=== PATIENT | female | born 1930 | race Caucasian/White ===

== ENCOUNTER 2018-12-09 18:12 | Inpatient (IN) ==
[2018-12-09 18:32] LABS: Basophils # 0.1 K/mm3 (0-0.2); Basophils % 0.4 % (0.1-2.0); Eosinophils # 0.4 K/mm3 (0.0-0.4); Hematocrit 40.9 % (37.0-47.0); Hemoglobin 13.5 g/dL (12.2-16.2); Lymphocytes # 2.3 K/mm3 (0.7-4.5); Lymphocytes % 17.8 % (10-50); Mean Platelet Volume 8.1 fl (7.4-10.4); Monocytes # 0.6 K/mm3 (0.1-1.0); Monocytes % 4.3 % (1.7-9.3); Neutrophils # 9.7 K/mm3 (1.8-7.8); Neutrophils % 74.6 % (37.0-80.0); Platelet Count 264 K/mm3 (142-424); Red Blood Count 4.45 M/mm3 (4.20-5.40); White Blood Count 13.1 K/mm3 (4.8-10.8)
[2018-12-09 18:39] LABS: Albumin Level 3.5 gm/dL (3.4-5.0); Albumin/Globulin Ratio 0.9 (1.1-1.8); Anion Gap 13.9 mEq/L (5-15); Bilirubin,Total 0.5 mg/dL (0.2-1.0); Calcium 8.9 mg/dL (8.5-10.1); Globulin 4.1 gm/dl (1.3-3.2); Total Protein,Serum 7.6 gm/dL (6.4-8.2)
--- NOTE | 2018-12-09 18:42 | Emergency Department Note ---
ED Disposition Condition on Discharge: Good - Critical Care Critical Care Time: No <Ankur Caceres - Last Filed: 12/09/18 20:19> <Ankur Cabral - Last Filed: 12/09/18 21:22> Clinical Impression: Fall Qualifiers: Encounter type: initial encounter Qualified Code(s): W19.XXXA - Unspecified fall, initial encounter Hip fracture Qualifiers: Encounter type: initial encounter Fracture type: closed Laterality: right Qualified Code(s): S72.001A - Fracture of unspecified part of neck of right femur, initial encounter for closed fracture Disposition: Admitted As Inpatient Referrals: Jf Gerard [Primary Care Provider] - Attestation: On 12/09/18, the high probability of a clinically significant, sudden or life threatening deterioration of the following system(s) required my full and direct attention, intervention and personal management. The time I documented below is in addition to time spent performing reported procedures but includes the following listed in this critical care notation. Medical Decision Making - Medical Records Medical records reviewed: Yes: I reviewed the patient's medical records. - Eduardo Inquiry Pt receiving controlled substance: No Eduardo was queried for this patient: No - Lab Data Lab results reviewed: Yes: I reviewed the patient's lab results. Result diagrams: 12/09/18 18:15 12/09/18 18:15 <Ankur Caceres - Last Filed: 12/09/18 20:19> - Lab Data Result diagrams: 12/09/18 18:15 12/09/18 18:15 - Radiology Data #1 Image(s): Femur Image Reviewed: Yes I reviewed the patient's radiology image Preliminary Findings: Abnormal (hip fx ) - CT Data CT Scan: Pelvis Time Received: 21:[address] Reviewed: Yes: I have viewed the radiologist's interpretation Preliminary Findings: Abnormal (hip fx ) - Physician Consults Physician Consulted: tyrel Reason -: Admission Additional Consult: [email or web address] Reason -: Pt condition <Ankur Cabral - Last Filed: 12/09/18 21:22> Vital Signs: 12/09/18 18:13 12/09/18 20:09 Temperature 98.1 F Temperature Source Oral Pulse Rate [Left Radial] 75 84 Respiratory Rate 16 Blood Pressure [Right Arm] 134/93 H 139/77 Blood Pressure Mean [Right Arm] 106 97 Blood Pressure Position [Right Arm] Sitting 02 Sat by Pulse Oximetry 91 L 91 L Oxygen Delivery Method Room Air - Lab Data Lab Results 12/09/18 18:15: WBC 13.1 H, RBC 4.45, Hgb 13.5, Hct 40.9, MCV 92.0, MCH 30.4, MCHC 33.0, RDW 13.0, Plt Count 264, MPV 8.1, Neut % (Auto) 74.6, Lymph % (Auto) 17.8, [place] % (Auto) 4.3, Eos % (Auto) 3.0, Baso % (Auto) 0.4, Neut # (Auto) 9.7 H, Lymph # (Auto) 2.3, [place] # (Auto) 0.6, Eos # (Auto) 0.4, Baso # (Auto) 0.1 12/09/18 18:15: Sodium 134 L, Potassium 3.9, Chloride 98, Carbon Dioxide 26, Anion Gap 13.9, BUN 15, Creatinine 1.12 H, Estimated Creat Clear 46, Estimated GFR 46 L, Est GFR ( Amer) 56 L, Glucose 133 H, Calcium 8.9, Total Bilirubin 0.5, AST 18, ALT 21, Alkaline Phosphatase 109, Total Protein 7.6, Albumin 3.5, Globulin 4.1 H, Albumin/Globulin Ratio 0.9 L 12/09/18 18:15: PT 10.1, INR 0.97, APTT 31.0 Orders (Tests/Meds): ED MEDICATIONS Discontinued Medications Generic Name Dose Route Start Last Admin Trade Name Freq PRN Reason Stop Dose Admin Ketorolac Tromethamine 30 mg 12/09/18 19:33 12/09/18 20:02 Toradol 30mg/Ml Vial IV 12/09/18 19:34 30 mg ONCE ONE Administration ORDERS Category Date Time Status CT pelvis wo con Stat Cat Scan 12/09/18 18:34 Taken Femur XR right 2 views [XR femur RT 2V] Stat Exams 12/09/18 18:35 Taken Fall HPI - General Mode of Arrival: EMS Source of Information: Patient Limitations: No Limitations Description of Symptoms (Recalled from ER Triage Doc. by RN): to ed per squad pt states fell down on step landing on sidewalk c/o rt hip pain. rt leg shortened pedal pulse strong. pt denies any other injury <Ankur Caceres - Last Filed: 12/09/18 20:19> <Ankur Cabral - Last Filed: 12/09/18 21:22> - General Chief Complaint: Fall Stated Complaint: fall Time Seen by Provider: 12/09/18 18:40 - Related Data Home Medications Medication Instructions Recorded Confirmed amlodipine 5 mg tablet 5 mg PO DAILY 90 Days 06/10/17 12/09/18 levothyroxine 125 mcg tablet 125 mcg PO DAILY 90 Days 06/10/17 12/09/18 metoprolol tartrate 50 mg tablet 50 mg PO DAILY 90 Days 06/10/17 12/09/18 pravastatin 80 mg tablet 1 tab PO DAILY 90 Days 06/10/17 12/09/18 triamterene 37.5 1 tab PO DAILY 90 Days 06/10/17 12/09/18 mg-hydrochlorothiazide 25 mg tablet aspirin 81 mg tablet,delayed 81 mg PO DAILY 10/08/18 12/09/18 release multivit with min-folic 1 tab PO DAILY 10/08/18 12/09/18 acid-lutein 400 mcg-250 mcg chewable tablet Allergies Allergy/AdvReac Type Severity Reaction Status Date / Time EGGS Allergy Unknown Uncoded 10/08/18 09:27 INFLUENZA VIRUS VACCINE Allergy Unknown Uncoded 10/08/18 09:27 PENICILLIN Allergy Unknown Uncoded 10/08/18 09:27 [facility] [place] History - Hepatitis A Screen Drug use history?: No High risk sexual behaviors?: No History of sexually transmitted infection?: No Currently employed?: No Childcare worker?: No Do you have indoor plumbing?: Yes Do you have electricity?: Yes I have reviewed the patient's past medical history: Yes Medical History: Reports:: Cancer, Hyperlipidemia, Hypertension Other Medical History: Reports: Cataracts, Thyroid Disease Other Surgeries: Yes: Appendectomy, Cancer Surgery, Colonoscopy, Colon Resection, Thyroidectomy Comment: TINA - Social History Smoking Status: Never smoker Alcohol Intake: never Alcohol Intake Frequency:: other Substance Use Type: denies use Occupational Status: retired Family Hx:: Coronary Artery Disease <Ankur Caceres - Last Filed: 12/09/18 20:19> - Hepatitis A Screen Attestation statement:: This patient has been screened for Hepatitis A risk factors. ROS Obtained: Yes All systems reviewed & no additional complaints - Constitutional Constitutional: Denies fever(s) - Eyes Eyes: Denies change in vision - Cardiovascular Cardiovascular: Denies chest pain, Denies diaphoresis, Denies dyspnea - Respiratory Respiratory: No chest congestion, No dyspnea - Gastrointestinal Gastrointestingal: Denies: abdominal pain - Musculoskeletal Musculoskeletal: Reports joint pain, Reports joint stiffness, Reports limited range of motion, Reports muscle cramps, Reports muscle aches - Integumentary/Breasts Skin/Breast: Denies rash, Denies skin pain - Neurologic Neurologic: Denies seizure-like activity, Denies sensory deficit, Denies syncope, Denies tingling, Denies weakness - Hematologic/Lymphatic Henatologic/Lymphatic: Denies easy bleeding <Ankur Caceres - Last Filed: 12/09/18 20:19> Physical Exam - General General appearance: alert, in no apparent distress - Head Head exam: atraumatic, normocephalic, normal inspection - Eye Eye exam: Present: normal appearance, PERRL, EOMI - ENT ENT exam: Present: normal exam, normal oropharynx, mucous membranes moist, TM's normal bilaterally, normal external ear exam - Neck Neck exam: Present: normal inspection, full ROM, trachea midline. Absent: meningismus, lymphadenopathy - Respiratory Respiratory exam: Present: normal lung sounds bilaterally. Absent: respiratory distress - Cardiovascular Cardiovascular exam: Present: regular rate, normal rhythm. Absent: JVD - Abdominal Exam Abdominal exam: Present: soft, normal bowel sounds. Absent: distention, tenderness, guarding - Extremities Exam Extremities exam: Present: tenderness, normal capillary refill, joint swelling. Absent: full ROM - Expanded Lower Extremity Exam Left Knee exam: Present: tenderness, swelling, other (large hemarthrosis). Absent: normal inspection, full ROM, laceration - Neurological Exam Neurological exam: Present: alert, oriented X3 - Psychiatric Psychiatric exam: Present: normal affect, normal mood - Skin Skin exam: Present: warm, dry, intact, normal color <Ankur Caceres - Last Filed: 12/09/18 20:19>
[2018-12-09 20:33] LABS: INR 0.97 (0.9-1.1); Prothrombin Time 10.1 seconds (9.4-11.8)
--- NOTE | 2018-12-10 07:16 | Pharmacy Consult Notes ---
[facility] Pharmacy VTE Monitoring - Patient Demographics Admission date: 12/10/18 Report Date: 12/10/18 Time: 07:16 Allergies/Adverse Reactions: Patient Allergies EGGS Allergy (Unknown, Uncoded 10/08/18 09:27) INFLUENZA VIRUS VACCINE Allergy (Unknown, Uncoded 10/08/18 09:27) PENICILLIN Allergy (Unknown, Uncoded 10/08/18 09:27) Height: 1.63 m Weight: 85.389 kg Patient Problems: Current Active Problems Fall (Acute) Hip fracture (Acute) - VTE Risk Labs: VTE Related Lab Results Hgb 13.5 g/dL (12.2-16.2) 12/09/18 18:15 Hct 40.9 % (37.0-47.0) 12/09/18 18:15 Plt Count 264 K/mm3 (142-424) 12/09/18 18:15 PT 10.1 seconds (9.4-11.8) 12/09/18 18:15 INR 0.97 (0.9-1.1) 12/09/18 18:15 APTT 31.0 seconds (23.6-34.0) 12/09/18 18:15 BUN 15 mg/dL (7-18) 12/09/18 18:15 Creatinine 1.12 mg/dL (0.55-1.02) H 12/09/18 18:15 Estimated Creat Clear 46 mL/min (50-200) 12/09/18 18:15 Was VTE Risk Assessment Performed: Yes VTE Score: 6 VTE Risk Level: Moderate Risk Clinical Trial Participant: No - Prophylaxis VTE Prophylaxis Ordered?: Yes Types of VTE Prophylaxis: TEDS Knee High Location of Applied Device: Refused
[2018-12-10 07:28] LABS: INR 1.01 (0.9-1.1); Prothrombin Time 10.5 seconds (9.4-11.8)
[2018-12-10 07:34] LABS: Albumin/Globulin Ratio 0.8 (1.1-1.8); Anion Gap 12.9 mEq/L (5-15); Bilirubin,Total 0.8 mg/dL (0.2-1.0); Calcium 8.5 mg/dL (8.5-10.1); Globulin 3.8 gm/dl (1.3-3.2); Total Protein,Serum 6.8 gm/dL (6.4-8.2)
--- NOTE | 2018-12-10 08:38 | History & Physical Report ---
*Admission Date: 12/10/18 *Chief complaint: Fall, right hip pain *History of present illness: 88-year-old female with history of hypertension and dyspnea with exertion who fell at home last night while outside. She states she was trying to go up some stairs and lost her balance. She fell on her right hip and felt immediate pain. Brought to the ER due to inability to bear weight. Found to have Mildly impacted right femoral neck fracture subcapital versus transcervical. Orthopedics was consulted, Dr. Aguirre excepted to do surgical fixation in the morning. Otherwise the patient complains only of shortness of breath which has been present for decades. She does wear a CPAP at night. Denies head trauma or loss of consciousness. No other pain elsewhere. This morning on interview she has a slight fever but no focal complaints. Denies history of chest pain, neuropathy, confusion, bleeding disorders. Admitted to medicine for further management [facility] History I have reviewed the patient's past medical history: Yes Medical History: Reports:: Cancer, Hyperlipidemia, Hypertension *Have you ever received a pneumonia vaccine?: Yes *Have you received a flu vaccine this season?: No (REPORTS BEING ALLERGIC TO EGGS) Other Medical History: Reports: Cataracts, Thyroid Disease Other Surgeries: Yes: Appendectomy, Cancer Surgery, Colonoscopy, Colon Resection, Thyroidectomy - *Social History Educational Level: Attended High School Smoking Status: Never smoker Alcohol Intake: never Alcohol Intake Frequency:: other Substance Use Type: denies use *Occupational Status:: retired *Travel in the last 8 weeks: None Family Hx:: Coronary Artery Disease Review of Systems - Review of Systems Review of systems:: pertinent systems reviewed and negative unless documented below - *Neurologic Denies seizure-like activity, Denies sensory deficit, Denies fainting, Denies tingling, Denies weakness Meds Home Medications Medication Instructions Recorded Confirmed Type amlodipine 5 mg tablet 5 mg PO DAILY 90 Days 06/10/17 12/09/18 History metoprolol tartrate 50 mg tablet 50 mg PO BID 90 Days 06/10/17 12/09/18 History pravastatin 80 mg tablet 80 mg PO HS 90 Days 06/10/17 12/10/18 History triamterene 37.5 1 tab PO DAILY 90 Days 06/10/17 12/09/18 History mg-hydrochlorothiazide 25 mg tablet aspirin 81 mg tablet,delayed 81 mg PO DAILY 10/08/18 12/09/18 History release multivit with min-folic 1 tab PO DAILY 10/08/18 12/09/18 History acid-lutein 400 mcg-250 mcg chewable tablet Hydrocod/Acet 5/325 mg [[place] 5 mg PO Q6 PRN 12/10/18 12/10/18 History 5/325mg tablet] Levothyroxine Sodium [Synthroid 150 mcg PO DAILY 12/10/18 12/10/18 History 150mcg (0.15mg) tablet] Allergies Allergy/AdvReac Type Severity Reaction Status Date / Time EGGS Allergy Unknown Unknown Uncoded 12/10/18 07:45 allergy reaction INFLUENZA VIRUS VACCINE Allergy Unknown Unknown Uncoded 12/10/18 07:45 allergy reaction PENICILLIN Allergy Unknown Unknown Uncoded 12/10/18 07:45 allergy reaction Exam Vital signs and Labs for Last 24 Hours: Temp Pulse Resp BP Pulse Ox 97.9 F 93 H 17 149/84 H 94 L 12/10/18 04:00 12/10/18 04:00 12/10/18 04:00 12/10/18 04:00 12/10/18 07:39 Laboratory Results - last 24 hr 12/09/18 18:15: WBC 13.1 H, RBC 4.45, Hgb 13.5, Hct 40.9, MCV 92.0, MCH 30.4, MCHC 33.0, RDW 13.0, Plt Count 264, MPV 8.1, Neut % (Auto) 74.6, Lymph % (Auto) 17.8, [place] % (Auto) 4.3, Eos % (Auto) 3.0, Baso % (Auto) 0.4, Neut # (Auto) 9.7 H, Lymph # (Auto) 2.3, [place] # (Auto) 0.6, Eos # (Auto) 0.4, Baso # (Auto) 0.1 12/09/18 18:15: Sodium 134 L, Potassium 3.9, Chloride 98, Carbon Dioxide 26, Anion Gap 13.9, BUN 15, Creatinine 1.12 H, Estimated Creat Clear 46, Estimated GFR 46 L, Est GFR ( Amer) 56 L, Glucose 133 H, Calcium 8.9, Total Bilirubin 0.5, AST 18, ALT 21, Alkaline Phosphatase 109, Total Protein 7.6, Albumin 3.5, Globulin 4.1 H, Albumin/Globulin Ratio 0.9 L 12/09/18 18:15: PT 10.1, INR 0.97, APTT 31.0 12/10/18 06:45: PT 10.5, INR 1.01 12/10/18 06:45: Sodium 134 L, Potassium 3.9, Chloride 99, Carbon Dioxide 26, Anion Gap 12.9, BUN 14, Creatinine 1.00, Estimated Creat Clear 54, Estimated GFR 53 L, Est GFR ( Amer) 64, Glucose 118 H, Calcium 8.5, Magnesium 1.7, Total Bilirubin 0.8, AST 17, ALT 18, Alkaline Phosphatase 88, Total Protein 6.8, Albumin 3.0 L D, Globulin 3.8 H, Albumin/Globulin Ratio 0.8 L I & O for Last 24 hours: Intake & Output 12/07/18 12/08/18 12/09/18 12/10/18 23:59 23:59 23:59 23:59 Intake Total 498 / 498 Output Total 700 / 700 Balance -202 / -202 Weight 85.389 kg 85.389 kg - Constitutional no acute distress, obese - *Routine HEENT Exam Head: Present: normocephalic Eye: Present: EOMI, PERRL ENT: Present: mucous membranes moist - *Routine Neck Exam Present: supple. Absent: lymphadenopathy - *Routine Respiratory Exam Comments: Good air movement bilaterally, diminished in the bilateral bases with crackles posterior lung lung noel in the bases. Otherwise good air movement with no wheeze or rhonchi. - *Routine Cardiovascular Exam Present: RRR - *Routine Abdominal Exam Present: soft, normoactive bowel sounds. Absent: tenderness - *Routine Extremities Exam Absent: cyanosis, clubbing, edema Comments: Tender to palpation superficial her right hip. No leg length discrepancy or abnormal rotation - *Routine Skin Exam Present: warm. Absent: rash - *Routine Neurological Exam Present: alert, oriented X3 Assessment and Plan (1) HTN (hypertension) Current visit: Yes Status: Chronic Qualifiers: Hypertension type: essential hypertension Qualified Code(s): I10 - Essential (primary) hypertension Category: Medical Code(s): I10 - Essential (primary) hypertension Continue home medications. (2) DIAZ (dyspnea on exertion) Current visit: Yes Status: Chronic Category: Medical Code(s): R06.09 - Other forms of dyspnea Chest x-ray ordered, echo obtained with formal read pending. Has seen a order checker packer processer in the outpatient setting. No clear diagnosis at this time for her dyspnea. (3) Fall Current visit: Yes Status: Acute Qualifiers: Encounter type: initial encounter Qualified Code(s): W19.XXXA - Unspecified fall, initial encounter Category: Medical Code(s): W19.XXXA - Unspecified fall, initial encounter (4) Hip fracture Current visit: Yes Status: Acute Qualifiers: Encounter type: initial encounter Fracture type: closed Laterality: right Qualified Code(s): S72.001A - Fracture of unspecified part of neck of right femur, initial encounter for closed fracture Category: Medical Code(s): S72.009A - Fracture of unspecified part of neck of unspecified femur, initial encounter for closed fracture Patient is an 88-year-old female with history of hypertension, hypercholesterolemia. No known coronary artery disease. Normal kidney function. Nondiabetic with no use of insulin. Patient has an RCRI of 0. METS or not quantifiable due to her dyspnea with exertion and limited activity due to bilateral knee pain from arthritis. Have obtained EKG and echocardiogram. At this time patient is optimized for surgical fixation of her hip. May continue home medications in the perioperative setting. Would recommend postop Lovenox for DVT prophylaxis, 40 mg once daily. Will transition to either high-dose aspirin or a NOAC at time of discharge to complete 6 weeks of therapy. Physical therapy to be consulted after surgery for assessment and recommendations for placement versus outpatient PT. (5) TINA (obstructive sleep apnea) Current visit: Yes Status: Acute Category: Medical Code(s): G47.33 - Obstructive sleep apnea (adult) (pediatric) Patient brought her home CPAP. Continue while sleeping.
--- NOTE | 2018-12-10 14:49 | Progress Note ---
[facility] Anesthesia Checklist - Patient Identification Patient Identification: Arm Band, Verbal (Name & ) - Structural Data Admitted From: Inpatient Planned Operative Procedure/s: Right hip canulated screw Consent for Planned Operative Procedure(s) Verified: Yes Verified Documents: Surgical Consent, History and Physical - NPO Status Verified Time NPO: 00:00 - Chart Verification Results Verified: CBC, BMP - Additional verifications Patient : No Anesthesia Reactions: No - Airway Assessment C-Spine Mobility Assessed: Yes (limited neck ROM) TMJ Mobility Assessed: Yes Dentition: Poor Dentition - Neurological Assessment Level of Consciousness: Follows Commands, Drowsy Hx Seizures: No Numbness or tingling in extremities: No - Anesthesia Plan Anesthesia Risk discussed: Yes Anesthesia Plan: Verified ASA Class: III (Emergent) Anesthesia Type: Spinal [facility] History I have reviewed the patient's past medical history: Yes Medical History: Reports:: Asthma, Cancer, Hyperlipidemia, Hypertension *Have you ever received a pneumonia vaccine?: Yes *Have you received a flu vaccine this season?: No (REPORTS BEING ALLERGIC TO EGGS) Other Medical History: Reports: Cataracts, Hypothyroidism, Thyroid Disease Comment:: obesity Anesthesia experience/problems:: Hx of difficulty waking up, difficulty with keeping oxygen saturation levels increased to normal levels Other Surgeries: Yes: Appendectomy, Cancer Surgery, Colonoscopy, Colon Resection, Thyroidectomy Amputation: No Fractures: Yes - *Social History Educational Level: Attended High School Smoking Status: Never smoker Alcohol Intake: never Alcohol Intake Frequency:: other Substance Use Type: denies use *Occupational Status:: retired *Travel in the last 8 weeks: None Family Hx:: Coronary Artery Disease
--- NOTE | 2018-12-10 14:53 | Progress Note ---
[facility] Anesthesia Record Part I Intake, IV Amount: 1,200 Estimated blood loss (mL): 75 Urine output (mL): 450 Blood Products used (#): none Blood Pressure: 113/56 SaO2: 94 Pulse Rate: 112 Respiratory Rate: 16 Temperature: 100.2 F Patient is:: Drowsy, Nasal O2, Stable Stable to PACU at:: 14:40
--- NOTE | 2018-12-10 14:54 | Progress Note ---
[facility] Anesthesia Record Part II Discharge Time: 15:10 Destination: Medical Surgical Department ([place] bed) PACU nurse assessment reviewed?: Yes Patient Condition:: Good Anesthesia Complications:: None Swallowing reflex intact?: Yes Cyanosis?: No
--- NOTE | 2018-12-10 17:29 | Consult Report ---
*Admission Date: 12/10/18 *Reason for consult:: R hip fracture *History of present illness: 88-year-old female admitted through the ER last night with a chief complaint of right hip pain and inability to ambulate. She was coming into her home from outside and tripped, falling onto the right hip. She lives in a 1 level home with her and states there is one step needed to enter the house. She typically does not need assistive devices for ambulation and had no prior issues with his hip. No history of fracture, surgery or prior injury to the right hip. She denies any current back pain, numbness or tingling that radiates down the right lower extremity; no other injury sustained during the fall, denies LOC during the injury. Review of Systems - Review of Systems Review of systems:: pertinent systems reviewed and negative unless documented below - *Neurologic Denies seizure-like activity, Denies sensory deficit, Denies fainting, Denies tingling, Denies weakness [facility] History I have reviewed the patient's past medical history: Yes Medical History: Reports:: Asthma, Cancer, Hyperlipidemia, Hypertension Denies:: Seizures *Have you ever received a pneumonia vaccine?: Yes *Have you received a flu vaccine this season?: No (REPORTS BEING ALLERGIC TO EGGS) Other Medical History: Reports: Cataracts, Hypothyroidism, Thyroid Disease Anesthesia experience/problems:: Hx of difficulty waking up, difficulty with keeping oxygen saturation levels increased to normal levels Other Surgeries: Yes: Appendectomy, Cancer Surgery, Colonoscopy, Colon Resection, Thyroidectomy Amputation: No Fractures: Yes - *Social History Educational Level: Attended High School Smoking Status: Never smoker Alcohol Intake: never Alcohol Intake Frequency:: other Substance Use Type: denies use *Occupational Status:: retired *Travel in the last 8 weeks: None Family Hx:: Coronary Artery Disease Meds Home Medications Medication Instructions Recorded Confirmed Type amlodipine 5 mg tablet 5 mg PO DAILY 90 Days 06/10/17 12/09/18 History metoprolol tartrate 50 mg tablet 50 mg PO BID 90 Days 06/10/17 12/09/18 History pravastatin 80 mg tablet 80 mg PO HS 90 Days 06/10/17 12/10/18 History triamterene 37.5 1 tab PO DAILY 90 Days 06/10/17 12/09/18 History mg-hydrochlorothiazide 25 mg tablet aspirin 81 mg tablet,delayed 81 mg PO DAILY 10/08/18 12/09/18 History release multivit with min-folic 1 tab PO DAILY 10/08/18 12/09/18 History acid-lutein 400 mcg-250 mcg chewable tablet Hydrocod/Acet 5/325 mg [[place] 5 mg PO Q6 PRN 12/10/18 12/10/18 History 5/325mg tablet] Levothyroxine Sodium [Synthroid 150 mcg PO DAILY 12/10/18 12/10/18 History 150mcg (0.15mg) tablet] Allergies Allergy/AdvReac Type Severity Reaction Status Date / Time egg Allergy Unknown Unknown Verified 12/10/18 15:07 allergy reaction Egg Derived Allergy Unknown Unknown Verified 12/10/18 15:07 allergy reaction Influenza Virus Vaccines Allergy Unknown Unknown Verified 12/10/18 15:07 allergy reaction Penicillins Allergy Unknown Unknown Verified 12/10/18 15:07 allergy reaction Exam Vital signs and Labs for Last 24 Hours: Temp Pulse Resp BP Pulse Ox 100.2 F H 100 H 18 117/65 97 12/10/18 14:53 12/10/18 16:00 12/10/18 15:10 12/10/18 15:10 12/10/18 15:10 Laboratory Results - last 24 hr 12/09/18 18:15: WBC 13.1 H, RBC 4.45, Hgb 13.5, Hct 40.9, MCV 92.0, MCH 30.4, MCHC 33.0, RDW 13.0, Plt Count 264, MPV 8.1, Neut % (Auto) 74.6, Lymph % (Auto) 17.8, [place] % (Auto) 4.3, Eos % (Auto) 3.0, Baso % (Auto) 0.4, Neut # (Auto) 9.7 H, Lymph # (Auto) 2.3, [place] # (Auto) 0.6, Eos # (Auto) 0.4, Baso # (Auto) 0.1 12/09/18 18:15: Sodium 134 L, Potassium 3.9, Chloride 98, Carbon Dioxide 26, Anion Gap 13.9, BUN 15, Creatinine 1.12 H, Estimated Creat Clear 46, Estimated GFR 46 L, Est GFR ( Amer) 56 L, Glucose 133 H, Calcium 8.9, Total Bilirubin 0.5, AST 18, ALT 21, Alkaline Phosphatase 109, Total Protein 7.6, Albumin 3.5, Globulin 4.1 H, Albumin/Globulin Ratio 0.9 L 12/09/18 18:15: PT 10.1, INR 0.97, APTT 31.0 12/10/18 06:45: PT 10.5, INR 1.01 12/10/18 06:45: Sodium 134 L, Potassium 3.9, Chloride 99, Carbon Dioxide 26, Anion Gap 12.9, BUN 14, Creatinine 1.00, Estimated Creat Clear 54, Estimated GFR 53 L, Est GFR ( Amer) 64, Glucose 118 H, Calcium 8.5, Magnesium 1.7, Total Bilirubin 0.8, AST 17, ALT 18, Alkaline Phosphatase 88, Total Protein 6.8, Albumin 3.0 L D, Globulin 3.8 H, Albumin/Globulin Ratio 0.8 L I & O for Last 24 hours: Intake & Output 12/08/18 12/09/18 12/10/18 12/11/18 11:59 11:59 11:59 11:59 Intake Total 498 / 498 1200 / 1200 Output Total 700 / 700 480 / 480 Balance -202 / -202 720 / 720 Weight 183 lb 13.46 oz - Constitutional no acute distress - *Routine HEENT Exam Head: Present: normocephalic Eye: Present: EOMI ENT: Present: mucous membranes moist - *Routine Respiratory Exam Present: CTA bilaterally - *Routine Cardiovascular Exam Present: RRR - *Routine Abdominal Exam Present: soft. Absent: tenderness - *Routine Extremities Exam Comments: R hip no open wounds, ecchymosis or erythema moderately tender over R hip ROM R hip deferred, but log roll painful +DF/PF/EHL RLE SILT distally RLE in all distributions R calf soft, non-tender palpable pedal pulses RLE - *Routine Skin Exam Present: intact Results - Labs Result Diagrams: 12/09/18 18:15 12/10/18 06:45 Labs: Abnormal lab results 12/09/18 12/09/18 12/10/18 Range/Units 18:15 18:15 06:45 WBC 13.1 H (4.8-10.8) K/mm3 Neut # (Auto) 9.7 H (1.8-7.8) K/mm3 Sodium 134 L 134 L (136-145) mmol/L Creatinine 1.12 H (0.55-1.02) mg/dL Estimated GFR 46 L 53 L (>60) ml/min Est GFR ( Amer) 56 L (>60) ML/MIN Glucose 133 H 118 H (74-106) mg/dL Albumin 3.0 L D (3.4-5.0) gm/dL Globulin 4.1 H 3.8 H (1.3-3.2) gm/dl Albumin/Globulin Ratio 0.9 L 0.8 L (1.1-1.8) H & H 12/09/18 Range/Units 18:15 Hgb 13.5 (12.2-16.2) g/dL Hct 40.9 (37.0-47.0) % Coagulation 12/09/18 12/10/18 Range/Units 18:15 06:45 INR 0.97 1.01 (0.9-1.1) All other labs normal. - Diagnostic results Hip x-ray: image reviewed (non-displaced, impacted R femoral neck fracture ) Hip CT: image reviewed Assessment and Plan (1) HTN (hypertension) Current visit: Yes Status: Chronic Qualifiers: Hypertension type: essential hypertension Qualified Code(s): I10 - Essential (primary) hypertension Category: Medical Code(s): I10 - Essential (primary) hypertension (2) DIAZ (dyspnea on exertion) Current visit: Yes Status: Chronic Category: Medical Code(s): R06.09 - Other forms of dyspnea (3) Fall Current visit: Yes Status: Acute Qualifiers: Encounter type: initial encounter Qualified Code(s): W19.XXXA - Unspecified fall, initial encounter Category: Medical Code(s): W19.XXXA - Unspecified fall, initial encounter (4) Hip fracture Current visit: Yes Status: Acute Qualifiers: Encounter type: initial encounter Fracture type: closed Laterality: right Qualified Code(s): S72.001A - Fracture of unspecified part of neck of right femur, initial encounter for closed fracture Category: Medical Code(s): S72.009A - Fracture of unspecified part of neck of unspecified femur, initial encounter for closed fracture (5) TINA (obstructive sleep apnea) Current visit: Yes Status: Acute Category: Medical Code(s): G47.33 - Obstructive sleep apnea (adult) (pediatric) - Assessment and plan all Dx Assessment and Plan for all problems:: 88yo F with R femoral neck fracture, impacted & non-displaced -- I discussed treatment options with the patient and her family, and have decided to proceed with surgical fixation; I am recommending right hip pinning --I discussed the risks of surgery, including bleeding, infection, hardware failure/screw cut out, persistent pain/disability, and need for further surgery in the future. The patient and her family vocalized understanding and informed consent was obtained. --900 mg clindamycin on-call to the OR --Remain n.p.o. --Medically cleared by Dr. Ace --To the OR this afternoon for right hip pinning
--- NOTE | 2018-12-10 17:29 | Operative Note ---
Date of procedure: 12/10/18 Pre-op Diagnosis:: R femoral neck fracture Post-op Diagnosis:: R femoral neck fracture Procedure performed:: R hip pinning Surgeon:: Carolina Aguirre MD Returns Clerk(s):: María Shrestha BACK TENDER PULP DRIER:: Az Bañuelos Anesthesia: MAC, spinal Estimated blood loss (mL): 10 Clinical Note:: 88-year-old female with history of hypertension and dyspnea with exertion who fell at home last night while outside. She states she was trying to go up some stairs and lost her balance. She fell on her right hip and felt immediate pain. Brought to the ER due to inability to bear weight. Found to have non- displaced, impacted femoral neck fracture. I discussed treatment options with the patient and her family, and we decided to proceed with R hip pinning. Risks of surgery were discussed with the patient and her family, who vocalized understanding; informed consent was obtained. She was medically cleared for surgery by Dr. Ace. Operative findings:: implants: Rumsey 6.5mm cannulated screw placement, partially-threaded x3 (90, 90, 95mm) Operative note:: The patient was identified in preoperative holding and the right hip signed by myself. Informed consent was verified with the patient and all questions answered. She was evaluated by anesthesia and the decision was made to perform the procedure under a spinal anesthetic with sedation. The patient was then taken to the operating room, where spinal was administered on the cart; she was then transferred to the fracture table and sedation administered. 900mg clindamycin was infused intravenously, and the patient positioned on the fracture table with the right lower extremity secured in the appropriate leg lindo and the left hip abducted and externally rotated out of the way of the C arm. No traction was applied to the right leg but the fracture table used only to secure the leg so that the C arm could approach the hip. The right hip was then prepped and draped in the usual sterile fashion. Timeout was performed, identifying the correct patient, correct procedure, and correct site. The procedure was begun by bringing the C arm in and getting AP and lateral x- rays of the right hip. The fracture was nondisplaced and impacted, and no reduction maneuver was necessary. A guidepin was held over the exterior surface of the hip on both AP and lateral views and used to estimate my desired incision site. A small stab incision was made over the lateral aspect of the right thigh and through the underlying fascia. Hemostat was used to bluntly spread the underlying muscle down to the bone. Using AP and lateral C arm views, the guidepin was placed in the desired location, with starting point superior to the lesser trochanter and centered within the femoral neck and head on lateral view, hugging the inferior aspect of the femoral neck on the AP view. The pin was advanced until it was approximately 5 mm beneath the articular surface. A second guidepin was placed superior and anterior to this, centered within the femoral neck and head on AP view, on the anterior portion of the neck on the lateral view. The same technique was repeated with a third guidepin, paralleling the second pin so that it was centered on AP but posterior on the lateral view. This configuration formed an inverted triangle within the femoral neck. A cannulated drill bit was then used to perforate the lateral cortex of the femur and a 6.5 mm partially-threaded cannulated screw placed in each of these 3 holes. They measured 90 mm, 90 mm, and 95 mm long. Each screw had short threads, which were chosen so that they purchased the bone in the proximal fracture fragment only, creating compression at the fracture site. I was happy with the alignment of all screws on AP and lateral views and no screws were seen to perforate the joint surface. This concluded the procedure so the wound was closed in a layered fashion, using 0 Vicryl on the deep fascia, 2-0 Vicryl on the subcutaneous tissue and moreno on the skin. Sterile dressing was applied consisting of Xeroform, 4 x 4's and tegaderm. The patient was then removed from the fracture table and transferred to her cart, where she was transferred to PACU in good condition. There were no complications during this case. Tourniquet time (min): 0 Condition: stable Disposition: PACU Specimens:: none Complications:: none
--- NOTE | 2018-12-10 19:38 | Cardiology Report ---
APPROVED REPORT EXAM: Comprehensive 2D, Doppler, and color-flow Echocardiogram Physician/Allergy/Immunology: Lorna Monsalve RDCS Ht: 5 ft 4 in Wt: 180lbs BSA: 1.87 BP: 149/84 mmHg Indications: FX HIP,HTN,HLP 2D Dimensions LVOT 1.62 cm (M/F) 1.5-2.5 M-Mode Dimensions RVDd 2.26 cm (0.9-2.6)LVDd 5.27 cm (3.5-5.7) LVDs 0.00 cm (3.5-5.7)IVSd 1.26 cm (0.6-1.1) PWd 1.11 cm (0.6-1.1)EF (Teich) 99.60% FS 88.40% EDV (Teich) 133.60 mL ESV (Teich) 0.50 mL Left Ventricle Left atrium is mildly enlarged, left ventricle is normal size, mild concentric left ventricular hypertrophy, visually estimated ejection fraction 55% with no regional wall motion abnormality, diastolic parameters are inconclusive. Right Ventricle Right atrium and right ventricular mildly enlarged with normal contractility. Aortic Valve Aortic valve is thickened and calcified leaflet continue to display good mobility. There is no aortic stenosis aortic insufficiency. Mitral Valve Mitral valve leaflets are minimally thickened, there is no mitral stenosis, there is mild mitral regurgitation. Tricuspid Valve Tricuspid valve is grossly normal, there is mild tricuspid regurgitation, calculated right ventricular systolic pressure is 54 mmHg which is moderately elevated. Pulmonic Valve Pulmonic valve is poorly visualized. Great Vessels Aortic root is normal size. Pericardium There is anterior echo-free space seen. There is no significant pericardial effusion noted. Conclusion 1. Biatrial enlargement, normal left ventricular size, mild concentric left ventricular hypertrophy, visually estimated ejection fraction 55% with no regional wall motion abnormality, diastolic parameters are inconclusive. 2. Enlarged right ventricle with normal contractility. 3. Mild mitral and tricuspid regurgitation, calculated right ventricular systolic pressure is 54 mmHg consistent with moderately elevated right ventricular systolic pressure. 4. There is anterior echo-free space seen. Electronically signed by : Jaylon Azul, 12/10/2018 19:37:27
[2018-12-11 07:20] LABS: Basophils % 0.3 % (0.1-2.0); Eosinophils # 0.4 K/mm3 (0.0-0.4); Hematocrit 32.7 % (37.0-47.0); Hemoglobin 10.6 g/dL (12.2-16.2); Lymphocytes # 1.1 K/mm3 (0.7-4.5); Lymphocytes % 12.6 % (10-50); Mean Corpuscular HGB Conc 32.5 g/dL (31.8-35.4); Mean Corpuscular Volume 91.6 fl (81-99); Mean Platelet Volume 8.2 fl (7.4-10.4); Monocytes # 0.5 K/mm3 (0.1-1.0); Monocytes % 6.2 % (1.7-9.3); Neutrophils # 6.6 K/mm3 (1.8-7.8); Neutrophils % 75.9 % (37.0-80.0); Platelet Count 194 K/mm3 (142-424); Red Blood Count 3.57 M/mm3 (4.20-5.40); White Blood Count 8.7 K/mm3 (4.8-10.8)
[2018-12-11 07:32] LABS: Anion Gap 10.6 mEq/L (5-15); Bilirubin,Total 1.1 mg/dL (0.2-1.0); Calcium 7.8 mg/dL (8.5-10.1)
[2018-12-11 07:33] LABS: Albumin Level 2.4 gm/dL (3.4-5.0); Albumin/Globulin Ratio 0.7 (1.1-1.8); Globulin 3.3 gm/dl (1.3-3.2); Total Protein,Serum 5.7 gm/dL (6.4-8.2)
--- NOTE | 2018-12-11 12:57 | Progress Note ---
Internal Medicine - PN: Subj *Date: 12/11/18 *Time: 12:56 Interval history: Ms. Connors did well overnight. Tolerating p.o. intake. Got up with physical therapy yesterday. Still having pain at surgical site as expected. No fevers or chest pain. Blood pressure slightly elevated, will resume home meds today. Otherwise has no complaints. Exam Vital signs and Labs for Last 24 Hours: Temp Pulse Resp BP Pulse Ox 98.9 F 94 H 17 158/89 H 94 L 12/11/18 07:55 12/11/18 08:00 12/11/18 07:55 12/11/18 07:55 12/11/18 07:56 Laboratory Results - last 24 hr 12/11/18 06:40: WBC 8.7 D, RBC 3.57 L, Hgb 10.6 L, Hct 32.7 L, MCV 91.6, MCH 29.8, MCHC 32.5, RDW 13.0, Plt Count 194 D, MPV 8.2, Neut % (Auto) 75.9, Lymph % (Auto) 12.6, [place] % (Auto) 6.2, Eos % (Auto) 5.0, Baso % (Auto) 0.3, Neut # (Auto) 6.6, Lymph # (Auto) 1.1, [place] # (Auto) 0.5, Eos # (Auto) 0.4, Baso # (Auto) 0.0 12/11/18 06:40: Sodium 133 L, Potassium 3.6, Chloride 101, Carbon Dioxide 25, Anion Gap 10.6, BUN 13, Creatinine 0.96, Estimated Creat Clear 56, Estimated GFR 55 L, Est GFR ( Amer) 67, Glucose 111 H, Calcium 7.8 L, Total Bilirubin 1.1 H, AST 11 L D, ALT 9 L D, Alkaline Phosphatase 70, Total Protein 5.7 L, Albumin 2.4 L D, Globulin 3.3 H, Albumin/Globulin Ratio 0.7 L I & O for Last 24 hours: Intake & Output 12/08/18 12/09/18 12/10/18 12/11/18 23:59 23:59 23:59 23:59 Intake Total 1698 / 1938 1557 / 1557 Output Total 1480 / 1630 300 / 300 Balance 218 / 308 1257 / 1257 Weight 85.389 kg 83.389 kg 87.657 kg Narrative: - Constitutional no acute distress, obese - *Routine HEENT Exam Head: Present: normocephalic Eye: Present: EOMI, PERRL ENT: Present: mucous membranes moist - *Routine Neck Exam Present: supple. Absent: lymphadenopathy - *Routine Respiratory Exam Comments: Good air movement bilaterally, diminished in the bilateral bases with crackles posterior lung lung noel in the bases. Otherwise good air movement with no wheeze or rhonchi. - *Routine Cardiovascular Exam Present: RRR - *Routine Abdominal Exam Present: soft, normoactive bowel sounds. Absent: tenderness - *Routine Extremities Exam Absent: cyanosis, clubbing, edema Comments: Tender to palpation around surgical site, bandage clean dry and intact. Neurovascularly intact distal to injury - *Routine Skin Exam Present: warm. Absent: rash - *Routine Neurological Exam Present: alert, oriented X3 Assessment and Plan (1) HTN (hypertension) Current visit: Yes Status: Chronic Qualifiers: Hypertension type: essential hypertension Qualified Code(s): I10 - Essential (primary) hypertension Category: Medical Code(s): I10 - Essential (primary) hypertension (2) DIAZ (dyspnea on exertion) Current visit: Yes Status: Chronic Category: Medical Code(s): R06.09 - Other forms of dyspnea (3) Fall Current visit: Yes Status: Acute Qualifiers: Encounter type: initial encounter Qualified Code(s): W19.XXXA - Unspecified fall, initial encounter Category: Medical Code(s): W19.XXXA - Unspecified fall, initial encounter (4) Hip fracture Current visit: Yes Status: Acute Qualifiers: Encounter type: initial encounter Fracture type: closed Laterality: right Qualified Code(s): S72.001A - Fracture of unspecified part of neck of right femur, initial encounter for closed fracture Category: Medical Code(s): S72.009A - Fracture of unspecified part of neck of unspecified femur, initial encounter for closed fracture (5) TINA (obstructive sleep apnea) Current visit: Yes Status: Acute Category: Medical Code(s): G47.33 - Obstructive sleep apnea (adult) (pediatric) - Assessment and plan all Dx Assessment and Plan for all problems:: 88-year-old status post surgical fixation of right hip fracture. Continue physical therapy. Continue Lovenox for DVT prophylaxis. Advance diet as tolerated. Resume home medications for blood pressure and chronic conditions. Will refer Thursday for placement for continued physical therapy prior to going home.
--- NOTE | 2018-12-11 16:14 | Progress Note ---
Subjective Date: 12/11/18 Time: 15:45 Principal diagnosis: Fracture neck of femur, right Interval history: Patient is status post right hip cannulated screw fixation, post op day #1. Patient is lying down in the bed. Patient says she is doing well and reports no problems. She has minimal pain and says it's well-controlled with medication. No history of any nausea or vomiting. No history of any cough, chest pain, shortness of breath or palpitations. No history of any distal tingling or numbness. She has started mobilizing with physical therapy and says it went well. PN: Obj Ex Vital signs: Temp Pulse Resp BP Pulse Ox 98.9 F 105 H 17 158/89 H 94 L 12/11/18 07:55 12/11/18 12:00 12/11/18 07:55 12/11/18 07:55 12/11/18 07:56 Narrative: Laboratory Results - last 24 hr 12/11/18 06:40: WBC 8.7 D, RBC 3.57 L, Hgb 10.6 L, Hct 32.7 L, MCV 91.6, MCH 29.8, MCHC 32.5, RDW 13.0, Plt Count 194 D, MPV 8.2, Neut % (Auto) 75.9, Lymph % (Auto) 12.6, [place] % (Auto) 6.2, Eos % (Auto) 5.0, Baso % (Auto) 0.3, Neut # (Auto) 6.6, Lymph # (Auto) 1.1, [place] # (Auto) 0.5, Eos # (Auto) 0.4, Baso # (Auto) 0.0 12/11/18 06:40: Sodium 133 L, Potassium 3.6, Chloride 101, Carbon Dioxide 25, Anion Gap 10.6, BUN 13, Creatinine 0.96, Estimated Creat Clear 56, Estimated GFR 55 L, Est GFR ( Amer) 67, Glucose 111 H, Calcium 7.8 L, Total Bilirubin 1.1 H, AST 11 L D, ALT 9 L D, Alkaline Phosphatase 70, Total Protein 5.7 L, Albumin 2.4 L D, Globulin 3.3 H, Albumin/Globulin Ratio 0.7 L Intake & Output 12/09/18 12/10/18 12/11/18 12/12/18 11:59 11:59 11:59 11:59 Intake Total 498 / 498 2757 / 2757 Output Total 700 / 700 1080 / 1080 Balance -202 / -202 1677 / 1677 Weight 183 lb 13.46 oz 193 lb 4.003 oz Exam General appearance: alert, active, awake, no acute distress Cardiovascular: regular rate & rhythm, normal peripheral pulses Respiratory: No respiratory distress; speaks in full sentences, breathing is nonlabored ABD: soft and non tender Neuro: alert, awake, oriented x 3 On examination of the lower extremities the limb lengths are equal. Thigh and calf are soft and nontender. On examination of the right hip the dressings are clean, dry and intact. No evidence of any bleeding or other complications noted. Distal pulses are 1+. Distal sensation is intact to light touch throughout. No motor deficits noted distally. - Urinary Catheter Management Napoles Cath placed during this visit: yes Urethral indwelling: Yes Reason for continuing: Surgical procedure Insertion date: 12/09/18 Insertion time: 18:27 Progress Note: A&P (1) HTN (hypertension) Status: Chronic Current Visit: Yes (2) DIAZ (dyspnea on exertion) Status: Chronic Current Visit: Yes (3) Fall Status: Acute Current Visit: Yes (4) Hip fracture Status: Acute Current Visit: Yes (5) TINA (obstructive sleep apnea) Status: Acute Current Visit: Yes Assessment and Plan for All Diagnoses:: I have reviewed the findings and progress with the patient. She is doing well and has started mobilizing well with the walker and advised her to continue the same. Continue DVT prophylaxis; continue as needed pain medication; continue incentive spirometry; continue physical therapy and mobilize weightbearing as tolerated. Discontinue IV fluids and discontinue the urinary catheter. Continue medical management as per Dr. Ace.
--- NOTE | 2018-12-12 12:06 | Progress Note ---
Internal Medicine - PN: Subj *Date: 12/12/18 *Time: 12:05 Interval history: Ms. Connors did well overnight. Still having difficulty ambulating on her own as expected. No bowel movement yet, will initiate bowel regimen. States pain is fairly well-controlled. No shortness of breath, chest pain, nausea, vomiting. Worked with PT again today. Exam Vital signs and Labs for Last 24 Hours: Temp Pulse Resp BP Pulse Ox 97.8 F 93 H 16 146/69 H 92 L 12/12/18 08:00 12/12/18 08:00 12/12/18 08:00 12/12/18 08:00 12/12/18 08:00 I & O for Last 24 hours: Intake & Output 12/09/18 12/10/18 12/11/18 12/12/18 23:59 23:59 23:59 23:59 Intake Total 1698 / 1938 1677 / 1677 Output Total 1480 / 1630 725 / 725 Balance 218 / 308 952 / 952 Weight 85.389 kg 83.389 kg 87.657 kg 88.451 kg Narrative: - Constitutional no acute distress, obese, in bedside chair on exam - *Routine HEENT Exam Head: Present: normocephalic Eye: Present: EOMI, PERRL ENT: Present: mucous membranes moist - *Routine Neck Exam Present: supple. Absent: lymphadenopathy - *Routine Respiratory Exam Comments: Good air movement bilaterally, diminished in the bilateral bases with crackles posterior lung lung noel in the bases. Otherwise good air movement with no wheeze or rhonchi. - *Routine Cardiovascular Exam Present: RRR - *Routine Abdominal Exam Present: soft, normoactive bowel sounds. Absent: tenderness - *Routine Extremities Exam Absent: cyanosis, clubbing, edema Comments: Tender to palpation around surgical site, bandage clean dry and intact. Neurovascularly intact distal to injury - *Routine Skin Exam Present: warm. Absent: rash - *Routine Neurological Exam Present: alert, oriented X3 Assessment and Plan (1) HTN (hypertension) Current visit: Yes Status: Chronic Qualifiers: Hypertension type: essential hypertension Qualified Code(s): I10 - Essential (primary) hypertension Category: Medical Code(s): I10 - Essential (primary) hypertension (2) DIAZ (dyspnea on exertion) Current visit: Yes Status: Chronic Category: Medical Code(s): R06.09 - Other forms of dyspnea (3) Fall Current visit: Yes Status: Acute Qualifiers: Encounter type: initial encounter Qualified Code(s): W19.XXXA - Unspecified fall, initial encounter Category: Medical Code(s): W19.XXXA - Unspecified fall, initial encounter (4) Hip fracture Current visit: Yes Status: Acute Qualifiers: Encounter type: initial encounter Fracture type: closed Laterality: right Qualified Code(s): S72.001A - Fracture of unspecified part of neck of right femur, initial encounter for closed fracture Category: Medical Code(s): S72.009A - Fracture of unspecified part of neck of unspecified femur, initial encounter for closed fracture (5) TINA (obstructive sleep apnea) Current visit: Yes Status: Acute Category: Medical Code(s): G47.33 - Obstructive sleep apnea (adult) (pediatric) - Assessment and plan all Dx Assessment and Plan for all problems:: Continue pain management. Advance diet as tolerated. Initiate bowel regimen today. Patient otherwise doing well after fixation of her hip. Plan for continued assessment with PT. Will work on placement tomorrow for continued physical therapy in the outpatient setting. Continues to require inpatient management.
--- NOTE | 2018-12-12 14:13 | Electrocardiograph Report ---
APPROVED REPORT Exam: Resting ECG HR:99 bpm ECG Measurements Heart Rate 99 AXES ND 160 P 48 QRSd 84 QRS 48 QT 330 T58 QTc 423 <Conclusion> Normal sinus rhythm Normal ECG Electronically signed by : Denilson Bowden, 12/12/2018 14:12:49
--- NOTE | 2018-12-12 16:40 | Progress Note ---
Subjective Date: 12/12/18 Time: 16:00 Principal diagnosis: Fracture neck of femur, right Interval history: Patient is status post right hip cannulated screw fixation, post op day #2. Patient is lying down in bed. Patient says she is doing well and reports no problems; reports minimal pain and says it's well-controlled with medication. No history of any nausea or vomiting. No history of any cough, chest pain, shortness of breath or palpitations. No history of any distal tingling or numbness. PN: Obj Ex Vital signs: Temp Pulse Resp BP Pulse Ox 98.1 F 84 17 150/70 H 97 12/12/18 12:00 12/12/18 16:00 12/12/18 12:00 12/12/18 12:00 12/12/18 12:00 Narrative: Exam General appearance: alert, active, awake, no acute distress Cardiovascular: regular rate & rhythm, normal peripheral pulses Respiratory: No respiratory distress; speaks in clear sentences ABD: soft and non tender Neuro: alert, awake, oriented x 3 On examination of the lower extremities the limb lengths are equal. Thigh and calf are soft and nontender. On examination of the right hip the dressings are clean and intact. I have changed the dressings today; there is minimal soaking of the dressings with blood; no evidence of any infection or other complications noted. Sterile dressings were applied. Distal pulses are 1+. Distal sensation is intact to light touch throughout. No motor deficits noted distally. - Urinary Catheter Management Napoles Cath placed during this visit: yes Urethral indwelling: Yes Reason for continuing: Surgical procedure Insertion date: 12/09/18 Insertion time: 18:27 Progress Note: A&P (1) HTN (hypertension) Status: Chronic Current Visit: Yes (2) DIAZ (dyspnea on exertion) Status: Chronic Current Visit: Yes (3) Fall Status: Acute Current Visit: Yes (4) Hip fracture Status: Acute Current Visit: Yes (5) TINA (obstructive sleep apnea) Status: Acute Current Visit: Yes Assessment and Plan for All Diagnoses:: I have reviewed the findings and progress with the patient. Overall she is doing very well and reports no problems. She is mobilizing well with the walker and advised her to continue the same. Continue DVT prophylaxis for 6 weeks Continue physical therapy. The dressings were changed by me today and the wound looks healthy. Continue medical management as per Dr. Ace.
--- NOTE | 2018-12-13 08:27 | Progress Note ---
Internal Medicine - PN: Subj *Date: 12/13/18 *Time: 08:27 Exam Vital signs and Labs for Last 24 Hours: Temp Pulse Resp BP Pulse Ox 98.3 F 82 18 134/66 94 L 12/13/18 04:00 12/13/18 04:00 12/13/18 04:00 12/13/18 04:00 12/13/18 04:00 I & O for Last 24 hours: Intake & Output 12/10/18 12/11/18 12/12/18 12/13/18 23:59 23:59 23:59 23:59 Intake Total 1698 / 1938 1677 / 1677 360 / 360 Output Total 1480 / 1630 725 / 725 Balance 218 / 308 952 / 952 360 / 360 Weight 83.389 kg 87.657 kg 88.451 kg 87.742 kg Assessment and Plan (1) HTN (hypertension) Current visit: Yes Status: Chronic Qualifiers: Hypertension type: essential hypertension Qualified Code(s): I10 - Essential (primary) hypertension Category: Medical Code(s): I10 - Essential (primary) hypertension (2) DIAZ (dyspnea on exertion) Current visit: Yes Status: Chronic Category: Medical Code(s): R06.09 - Other forms of dyspnea (3) Fall Current visit: Yes Status: Acute Qualifiers: Encounter type: initial encounter Qualified Code(s): W19.XXXA - Unspecified fall, initial encounter Category: Medical Code(s): W19.XXXA - Unspecified fall, initial encounter (4) Hip fracture Current visit: Yes Status: Acute Qualifiers: Encounter type: initial encounter Fracture type: closed Laterality: right Qualified Code(s): S72.001A - Fracture of unspecified part of neck of right femur, initial encounter for closed fracture Category: Medical Code(s): S72.009A - Fracture of unspecified part of neck of unspecified femur, initial encounter for closed fracture (5) TINA (obstructive sleep apnea) Current visit: Yes Status: Acute Category: Medical Code(s): G47.33 - Obstructive sleep apnea (adult) (pediatric)
--- NOTE | 2018-12-13 11:41 | Discharge Summary ---
General - General Admission date:: 12/09/18 Discharge date: 12/13/18 HPI HPI: 88-year-old female with history of hypertension and dyspnea with exertion who fell at home last night while outside. She states she was trying to go up some stairs and lost her balance. She fell on her right hip and felt immediate pain. Brought to the ER due to inability to bear weight. Found to have Mildly impacted right femoral neck fracture subcapital versus transcervical. Orthopedics was consulted, Dr. Aguirre excepted to do surgical fixation in the morning. Otherwise the patient complains only of shortness of breath which has been present for decades. She does wear a CPAP at night. Denies head trauma or loss of consciousness. No other pain elsewhere. This morning on interview she has a slight fever but no focal complaints. Denies history of chest pain, neuropathy, confusion, bleeding disorders. Admitted to medicine for further management Hospital Course Hospital Course: Ms. Connors is a pleasant 88-year-old female who was admitted for mildly impacted right femoral neck fracture. She was optimized for surgery and taken for pinning. Status post fixation at this time and has been seen by physical therapy daily. She tolerated the procedure well and had no complications. Is currently on Lovenox while admitted with plan to transition to Xarelto daily to complete 6 weeks total of DVT prophylaxis. Patient has been tolerating regular diet. Hemodynamically stable. Afebrile. No shortness of breath or chest pain. Meeting medical criteria for discharge to SNF for further rehab in hopes to get home in the coming weeks and regain her normal level of mobility and completing ADLs. Or her home CPAP device at night while sleeping. Incentive spirometer multiple times a day. No acute needs at this time. Stable for discharge Objective Vital signs: Temp Pulse Resp BP Pulse Ox 98.3 F 99 H 18 135/57 L 94 L 12/13/18 08:27 12/13/18 08:27 12/13/18 08:27 12/13/18 08:27 12/13/18 08:27 Narrative: - Constitutional no acute distress, obese, in bedside chair on exam - *Routine HEENT Exam Head: Present: normocephalic Eye: Present: EOMI, PERRL ENT: Present: mucous membranes moist - *Routine Neck Exam Present: supple. Absent: lymphadenopathy - *Routine Respiratory Exam Comments: Good air movement bilaterally, diminished in the bilateral bases with crackles posterior lung lung noel in the bases. Otherwise good air movement with no wheeze or rhonchi. - *Routine Cardiovascular Exam Present: RRR - *Routine Abdominal Exam Present: soft, normoactive bowel sounds. Absent: tenderness - *Routine Extremities Exam Absent: cyanosis, clubbing, edema Comments: Tender to palpation around surgical site, bandage clean dry and intact. Neurovascularly intact distal to injury - *Routine Skin Exam Present: warm. Absent: rash - *Routine Neurological Exam Present: alert, oriented X3 DS: Diagnosis - Discharge Diagnosis (1) HTN (hypertension) Status: Chronic (2) DIAZ (dyspnea on exertion) Status: Chronic (3) Fall Status: Acute (4) Hip fracture Status: Acute (5) TINA (obstructive sleep apnea) Status: Acute Discharge Plan - Patient Discharge Instructions ACTIVITY: Up with assistance DIET: continue same diet Patient Instructions: DI for Hip Fracture, DI for High Blood Pressure, How to Prevent Falls, DI for Surgical Site Infection - Follow up Plan Follow up with: Bhupendra Ace MD [Staff Physician] - Disposition: er [facility] Home Medications: Home Medications Medication Instructions Recorded Confirmed Type amlodipine 5 mg tablet 5 mg PO DAILY 90 Days 06/10/17 12/09/18 History metoprolol tartrate 50 mg tablet 50 mg PO BID 90 Days 06/10/17 12/09/18 History pravastatin 80 mg tablet 80 mg PO HS 90 Days 06/10/17 12/10/18 History triamterene 37.5 1 tab PO DAILY 90 Days 06/10/17 12/09/18 History mg-hydrochlorothiazide 25 mg tablet aspirin 81 mg tablet,delayed 81 mg PO DAILY 10/08/18 12/09/18 History release multivit with min-folic 1 tab PO DAILY 10/08/18 12/09/18 History acid-lutein 400 mcg-250 mcg chewable tablet Hydrocod/Acet 5/325 mg [[place] 5 mg PO Q6 PRN 12/10/18 12/10/18 History 5/325mg tablet] Levothyroxine Sodium [Synthroid 150 mcg PO DAILY 12/10/18 12/10/18 History 150mcg (0.15mg) tablet] Hydrocod/Acet 5/325 mg [[place] 1 tab PO Q6HP PRN 5 Days #20 tab 12/13/18 Rx 5/325mg tablet] Rivaroxaban [Xarelto 20mg Tablet] 20 mg PO DAILY 34 Days #34 tab 12/13/18 Rx Prescriptions/Medication Reconciliation: New Acetaminophen [Acetaminophen 325mg tab] 650 mg PO Q4HP PRN tablet PRN Reason: As Needed For Fever Or Pain Polyethylene Glycol 3350 [Miralax 17gm Packet] 17 gm PO BIDP PRN powd.pack PRN Reason: Constipation Sennosides/Docusate Sodium [Senokot-S Tablet] 1 tab PO BID tablet Hydrocod/Acet 5/325 mg [[place] 5/325mg tablet] 1 tab PO Q6HP PRN 5 Days #20 tab PRN Reason: Moderate To Severe Pain Continued metoprolol tartrate 50 mg tablet 50 mg PO BID 90 Days pravastatin 80 mg tablet 80 mg PO HS 90 Days amlodipine 5 mg tablet 5 mg PO DAILY 90 Days aspirin 81 mg tablet,delayed release 81 mg PO DAILY multivit with min-folic acid-lutein 400 mcg-250 mcg chewable tablet 1 tab PO DAILY triamterene 37.5 mg-hydrochlorothiazide 25 mg tablet 1 tab PO DAILY 90 Days Levothyroxine Sodium [Synthroid 150mcg (0.15mg) tablet] 150 mcg PO DAILY Hydrocod/Acet 5/325 mg [[place] 5/325mg tablet] 5 mg PO Q6 PRN PRN Reason: PAIN - Problem Reconciliation Problems Reviewed?: Yes
[2018-12-13 12:25] VITALS: BP 142/72
--- NOTE | 2018-12-13 12:29 | Progress Note ---
Subjective Date: 12/13/18 Time: 12:00 Principal diagnosis: Fracture neck of femur, right Interval history: The patient is doing well today. Minimal pain in the hip, doing well with PT. Anticipate d/c to SNF today. No BM yet but PO intake is improving; passing flatus. PN: Obj Ex Vital signs: Temp Pulse Resp BP Pulse Ox 98.3 F 99 H 18 135/57 L 94 L 12/13/18 08:27 12/13/18 08:27 12/13/18 08:27 12/13/18 08:27 12/13/18 08:27 - Constitutional no acute distress - Routine HEENT Exam Head: Present: normocephalic Eye: Present: EOMI ENT: Present: mucous membranes moist - Routine Extremities Exam Comments: R hip dressings c/d/i; no tenderness palpable pedal pulses RLE, foot warm/well-perfused SILT distally RLE in all distributions R calf soft, non-tender +DF/PF/EHL RLE - Urinary Catheter Management Napoles Cath placed during this visit: yes Urethral indwelling: No Insertion date: 12/09/18 Insertion time: 18:27 Progress Note: A&P (1) HTN (hypertension) Status: Chronic Current Visit: Yes (2) DIAZ (dyspnea on exertion) Status: Chronic Current Visit: Yes (3) Fall Status: Acute Current Visit: Yes (4) Hip fracture Status: Acute Current Visit: Yes (5) TINA (obstructive sleep apnea) Status: Acute Current Visit: Yes Assessment and Plan for All Diagnoses:: 88yo F POD 3 s/p R hip pinning for non-displaced femoral neck fracture -- WBAT RLE, continue PT/OT -- may shower; ok to remove dressings for brief shower, but cover with clean/dry dressings when done -- continue SCDs BLE -- encourage IS 10x/hr while awake -- DVT prophy per primary -- to SNF when approved/accepted, likely this afternoon -- f/u with me in 10 days
== END 2018-12-13 13:25 | DRG 482 ==
LOC: ER 18:12 → 2ND 21:22
PROVIDERS: ADMIT Family Medicine; ATTEND Internal Medicine Adolescent Medicine
CPT/HCPCS: 36415; 71010; 71045; 72192; 73502; 73552; 76000; 80053; 83735; 85025; 85610; 85730; 93005; 93306; 94640; 96374; 97110; 97116; 97162; 97166; 97530; 97535; 99284; C1713